=== PATIENT | female | born 1980 ===

== ENCOUNTER 2017-08-02 10:01 | Outpatient (CLI) | payer OTHER | END 2017-08-02 10:08 | disposition home or self-care (01) | LOC: SONOGRAMA 10:01 | DX: Z34.83 Encounter for supervision of other normal pregnancy, third trimester (principal) ==

== ENCOUNTER 2017-08-04 08:15 | Inpatient (IN) | payer OTHER ==
[~2017-08-04] VITALS: Ht 175.3 cm; Wt 3.2 kg
[2017-08-08] MEDS ORDERED: PRENATAL TABLE1 EACH PO (11:58)
[2017-08-08] MEDS ORDERED: SYNTHROID50 MCG PO (11:59)
[2017-08-08] MEDS ORDERED: INTEGRA PLUS C1 EACH PO (12:02)
== END 2017-08-11 16:31 | disposition home or self-care (01) | DRG 765 ==
LOC: LDR 08-08 10:31 → OB/GYN 08-09 08:15
PROVIDERS: Obstetrics & Gynecology
PROC: 10907ZC Drainage of Amniotic Fluid, Therapeutic from Products of Conception, Via Natural or Artificial Opening (ICD-10-PCS; 2017-08-09)
PROC: 3E0P7VZ Introduction of Hormone into Female Reproductive, Via Natural or Artificial Opening (ICD-10-PCS; 2017-08-09)
PROC: 3E033VJ Introduction of Other Hormone into Peripheral Vein, Percutaneous Approach (ICD-10-PCS; 2017-08-09)
PROC: 4A1HXCZ Monitoring of Products of Conception, Cardiac Rate, External Approach (ICD-10-PCS; 2017-08-09)
PROC: 10D00Z1 Extraction of Products of Conception, Low, Open Approach (ICD-10-PCS; principal; 2017-08-09 18:00)
DX: O61.0 Failed medical induction of labor (principal); O99.12 Other diseases of the blood and blood-forming organs and certain disorders involving the immune mechanism complicating childbirth; Z3A.39 39 weeks gestation of pregnancy; Z37.0 Single live birth

== ENCOUNTER 2017-08-15 13:16 | Outpatient (CLI) | payer OTHER ==
[~2017-08-15 13:16] MED LIST: INTEGRA PLUS C1 EACH PO; PRENATAL TABLE1 EACH PO; SYNTHROID50 MCG PO
== END 2017-08-15 13:22 | disposition home or self-care (01) ==
LOC: SONOGRAMA 13:16
DX: N20.0 Calculus of kidney (principal)